=== PATIENT | male | born 1995 | race Caucasian/White ===

== ENCOUNTER 2024-11-07 19:26 | Emergency (ER) | payer SELFPAY ==
[~2024-11-07] VITALS: Ht 177.8 cm; Wt 96.2 kg
[2024-11-07 19:51] VITALS: BP 133/74; TEMP 98; O2SAT 99
[2024-11-07] MEDS ORDERED: IBUPROFEN 400 MG TABLET ONE (20:14)
[2024-11-07] MEDS: IBUPROFEN 400 MG TABLET PO ONE (20:17)
== END 2024-11-07 21:49 | disposition home or self-care (01) ==
LOC: ER 19:33
DX: S62.616A Displaced fracture of proximal phalanx of right little finger, initial encounter for closed fracture (principal); Z88.0 Allergy status to penicillin; W18.39XA Other fall on same level, initial encounter; Y93.89 Activity, other specified; Y92.39 Other specified sports and athletic area as the place of occurrence of the external cause; Y99.8 Other external cause status
CPT/HCPCS: 73130-TC